=== PATIENT | female | born 1960 | race African-American/Black ===

== ENCOUNTER 2017-12-28 11:22 | Emergency (ER) | payer BC, MEDICAID ==
[~2017-12-28] VITALS: Ht 170.2 cm; Wt 72.6 kg
[2017-12-28] MEDS ORDERED: XANAX0.5 MG ORAL (11:34)
[2017-12-28] MEDS ORDERED: Ketorolac 30mg Inj IV ONE (12:00)
[2017-12-28 12:09] VITALS: BP 133/99
[2017-12-28] MEDS ORDERED: ACETAMINOPHEN-1 EAC1 ORAL (12:14)
--- NOTE | 2017-12-28 12:14 | Emergency Room Report ---
History of Present Illness General Chief Complaint: Abdominal Pain Source: Patient Present Illness HPI This patient c/o < one day right sided, RUQ and epigastric pain pain, sharp, burning. She has had pancreatitis in the past, this feels dissimilar. She says she has been told in the past that she has had an "inflamed gallbladder" by US. Denies etoh. Took one ibuprofen this am. Ate breakfast this am. Ate normal breakfast this am, no vomiting, no fever, no dysuria. No meds. Allergies: Coded Allergies: No Known Allergies (Unverified , 12/28/17) Patient History Last Menstrual Period: 2 years ago Nursing Documentation-[facility] Past Medical History: No History, Except For Hx Cardiac Problems: No Hx Hypertension: No Hx Pacemaker: No Hx Asthma: No Hx COPD: No Hx Diabetes: No Hx Gastrointestinal Problems: No Hx Dialysis: No History Of Psychiatric Problem: Yes - Anxiety Hx Neurological Problems: No Hx Cerebrovascular Accident: No Hx Seizures: No Review of Systems Constitutional: Reports: no symptoms Eye: Reports: no symptoms ENT: Reports: no symptoms Respiratory: Reports: no symptoms Cardiovascular: Reports: no symptoms Gastrointestinal: Reports: see HPI, abdominal pain Genitourinary: Reports: no symptoms Musculoskeletal: Reports: no symptoms Skin: Reports: no symptoms Psychiatric: Reports: no symptoms Neurological: Reports: no symptoms Endocrine: Reports: no symptoms Hematologic/Lymphatic: Reports: no symptoms Allergic: Reports: no symptoms Physical Exam Vital Signs Date Time Temp Pulse Resp B/P (MAP) Pulse Ox O2 Delivery O2 Flow Rate FiO2 12/28/17 11:25 98.1 85 16 133/99 99 Room Air 98.1 Sp02 EP Interpretation: reviewed, normal General Appearance: normal inspection, well appearing, no apparent distress, alert, GCS 15, non-toxic Head: normocephalic, atraumatic Eyes: bilateral eye normal inspection, bilateral eye PERRL, bilateral eye EOMI ENT: normal ENT inspection, hearing grossly normal, normal pharynx, no angioedema, normal voice, moist mucus membranes Neck: normal inspection, full range of motion, supple, no meningismus, no bony tend Respiratory: normal inspection, lungs clear, normal breath sounds, no rhonchi, no respiratory distress, no retraction, no accessory muscle use, no wheezing Cardiovascular #1: normal inspection, regular rate, rhythm, no edema Gastrointestinal: normal inspection, normal bowel sounds, soft, no mass, non- distended, other - +RUQ tender negative Hall's no surgical signs Musculoskeletal: gait/station normal, normal range of motion Neurologic: normal inspection, alert, oriented x3, responsive, motor strength/ tone normal Psychiatric: normal inspection, judgement/insight normal, memory normal Suicide Risk Assessment: Suicidal Ideation: No Had intent to initiate attempt: No Pt's plan for suicide attempt: No Has means to complete attempt: No Skin: normal inspection, normal color, no rash, warm/dry Medical Decision Making Diagnostic Impression: Primary Impression: Gastritis ER Course US per tech could not exclude stones due to gb contracted. however CBD normal. Not thickened wall. Last Vital Signs Date Time Temp Pulse Resp B/P (MAP) Pulse Ox O2 Delivery O2 Flow Rate FiO2 12/28/17 11:25 98.1 85 16 133/99 99 Room Air 98.1 Disposition: HOME, SELF-CARE Condition: Stable Scripts Acetaminophen With Codeine (T#3) (TYLENOL #3 TAB*) Y Tab 1 TAB ORAL Q8H PRN for For Pain, #9 TAB Prov: Des Mustafa M.D. 12/28/17 Referrals: [facility] (PCP) Patient Instructions: Biliary Colic, Gastritis, Adult Des Mustafa M.D. Dec 28, 2017 12:14
[2017-12-28 12:16] LABS: APPEARANCE,URINE CLEAR; BILIRUBIN, URINE NEGATIVE (NEGATIVE); COLOR,URINE PALE YELLOW; GLUCOSE, URINE (UA) NEGATIVE (NEGATIVE); KETONES,URINE NEGATIVE (NEGATIVE); LEUKOCYTE ESTERASE ,URINE 2+ (NEGATIVE); NITRITE,URINE NEGATIVE (NEGATIVE); PH,URINE 6 (4.5-8.0); PROTEIN,URINE NEGATIVE (NEGATIVE); UROBILINOGEN,URINE NORMAL MG/DL (0.0-1.0)
[2017-12-28 12:42] LABS: BASOPHILS % (AUTO) 1.3 % (0.0-2.0); HEMATOCRIT 41.9 % (37.0-47.0); HEMOGLOBIN 13.3 G/DL (12.0-16.0); LYMPHOCYTES % (AUTO) 40.2 % (20.0-45.0); MEAN CORPUSCULAR VOLUME 85 FL (80-99); MONOCYTES % (AUTO) 8.1 % (1.0-10.0); NEUTROPHILS % (AUTO) 49.4 % (45.0-75.0); PLATELET COUNT 222 K/UL (150-450); RED BLOOD COUNT 4.91 M/UL (4.20-5.40); RED CELL DISTRIBUTION WIDTH 12.3 % (11.6-14.8)
[2017-12-28 12:58] LABS: ANION GAP 9 mmol/L (5-15); BLOOD UREA NITROGEN 11 mg/dL (7-18); CALCIUM 9.1 MG/DL (8.5-10.1); CARBON DIOXIDE 25 MMOL/L (21-32); CHLORIDE 106 MMOL/L (98-107); CREATININE 0.9 MG/DL (0.55-1.30); SODIUM 140 MMOL/L (136-145)
[2017-12-28 13:00] LABS: ALANINE AMINOTRANSFERASE 14 U/L (12-78); ALBUMIN 3.8 G/DL (3.4-5.0); ALBUMIN/GLOBULIN RATIO 0.9 (1.0-2.7); ALKALINE PHOSPHATASE 106 U/L (46-116); ASPARTATE AMINO TRANSFERASE 32 U/L (15-37); BILIRUBIN,TOTAL 0.5 MG/DL (0.2-1.0)
[2017-12-28 13:33] VITALS: BP 133/99
--- NOTE | 2017-12-28 13:47 | Diagnostic Imaging Report ---
Indication: Abdominal pain Technique: US ABD Complete Comparison: None Findings: Imaged portions of the pancreatic head are grossly unremarkable. Liver appears normal in size and contour. No focal hepatic mass lesion is appreciated sonographically. The main portal vein is patent with normal direction of flow. Gallbladder is contracted, limiting its evaluation. The presence of gallstones or sludge cannot reliably be determined. There is no abnormal gallbladder wall thickening or pericholecystic fluid. Sonographic Hall sign reported as negative. No appreciable intrahepatic biliary ductal dilatation. Common bile duct is normal in caliber measuring 4.5 mm. Kidneys demonstrate normal echogenicity. There is no hydronephrosis or sonographically appreciable stone bilaterally. Spleen is normal in size. There is no ascites. Imaged portions of the inferior vena cava and abdominal aorta are normal in caliber. IMPRESSION: Contracted gallbladder, likely related to nonfasting state. No definite stones or sludge identified however evaluation limited due to gallbladder contraction. No sonographic evidence to suggest acute cholecystitis. Sonographic Hall sign reported as negative.
== END 2017-12-28 13:34 | disposition home or self-care (01) ==
LOC: EMR 11:53
DX: K29.70 Gastritis, unspecified, without bleeding (principal)
CPT/HCPCS: 01922; 36415; 76700; 80053; 81001; 83690; 85025; 96361; 96374; 99284; J1885

== ENCOUNTER 2018-06-20 21:07 | Emergency (ER) | payer BC, OTHER ==
[~2018-06-20] VITALS: Ht 177.8 cm; Wt 63.5 kg
[~2018-06-20 21:07] MED LIST: ACETAMINOPHEN-1 EAC1 ORAL; XANAX0.5 MG ORAL
--- NOTE | 2018-06-20 21:45 | NUR ---
ED Nurse Note: RECIEVED PT FROM HOME AWAKE, ALERT AND ORIENTED X 4, PT WITH C/O CHRONIC ABD PAIN, STATING SHE HAS HX OF PANCREATITIS AND WORK INJURY TO BACK, PT IS AMBULATING, C/O PAIN AT 9/10 WITH NAUSEA, NO EMESIS, NO CP, NO SOB OR FEVERS OR DIARRHEA, PT GOWNED AND ASSISTED TO MONITORING, WILL RESUME CARE ODERED WITH CLOSE, CONTINUOUS MONITORING.
[2018-06-20] MEDS ORDERED: Morphine Sulfate 4mg/ml Inj (IV/IM USE ONLY) IVP ONE (22:00)
[2018-06-20 22:20] LABS: BASOPHILS % (AUTO) 1.2 % (0.0-2.0); EOSINOPHILS % (AUTO) 1.5 % (0.0-3.0); HEMOGLOBIN 12.9 G/DL (12.0-16.0); LYMPHOCYTES % (AUTO) 46.6 % (20.0-45.0); MEAN CORPUSCULAR VOLUME 86 FL (80-99); NEUTROPHILS % (AUTO) 41.7 % (45.0-75.0); PLATELET COUNT 232 K/UL (150-450); RED BLOOD COUNT 4.77 M/UL (4.20-5.40); RED CELL DISTRIBUTION WIDTH 12.3 % (11.6-14.8); WHITE BLOOD COUNT 7.2 K/UL (4.8-10.8)
[2018-06-20 22:30] VITALS: BP 154/92
[2018-06-20 22:33] LABS: ANION GAP 10 mmol/L (5-15); BLOOD UREA NITROGEN 12 mg/dL (7-18); CALCIUM 9.3 MG/DL (8.5-10.1); CARBON DIOXIDE 26 MMOL/L (21-32); CHLORIDE 105 MMOL/L (98-107); CREATININE 1.1 MG/DL (0.55-1.30); POTASSIUM 3.9 MMOL/L (3.5-5.1); SODIUM 141 MMOL/L (136-145)
--- NOTE | 2018-06-20 22:37 | Emergency Room Report ---
History of Present Illness General Chief Complaint: Abdominal Pain Source: Patient Present Illness HPI Patient presents with complaints of upper abdominal pain Reports that she has been dealing with chronic pancreatitis Does not feel that she's getting a definitive evaluation and follow-up Denies any vomiting or diarrhea Complains of pain bilateral upper abdomen 5 out of 10 denies any fevers or chills denies any vomiting or diarrhea Denies any neck pain or photophobia Patient reports that she had a fall recently felt that this might have exacerbated her discomfort Allergies: Coded Allergies: No Known Allergies (Unverified , 12/28/17) Patient History Past Medical History: see triage record Pertinent Family History: none Now: No Reviewed Nursing Documentation: PMH: Agreed; PSxH: Agreed Nursing Documentation-PMH Hx Cardiac Problems: No Hx Hypertension: No Hx Pacemaker: No Hx Asthma: No Hx COPD: No Hx Diabetes: No Hx Gastrointestinal Problems: No Hx Dialysis: No Hx Neurological Problems: No Hx Cerebrovascular Accident: No Hx Seizures: No Review of Systems All Other Systems: negative except mentioned in HPI Physical Exam Vital Signs Date Time Temp Pulse Resp B/P (MAP) Pulse Ox O2 Delivery O2 Flow Rate FiO2 06/20/18 21:23 97.7 73 18 140/97 98 Room Air Sp02 EP Interpretation: reviewed, normal General Appearance: well appearing, no apparent distress Head: normocephalic, atraumatic Eyes: bilateral eye PERRL, bilateral eye EOMI ENT: hearing grossly normal, normal pharynx, TMs + canals normal, uvula midline Neck: full range of motion, supple, no meningismus, no bony tend Respiratory: lungs clear, normal breath sounds, no rhonchi, no respiratory distress, no retraction, no accessory muscle use Cardiovascular #1: normal peripheral pulses, regular rate, rhythm, no edema, no gallop, no JVD, no murmur Gastrointestinal: normal bowel sounds, non tender, soft, no mass, no organomegaly, non-distended, no guarding, no hernia, no pulsatile mass, no rebound Genitourinary: no CVA tenderness Musculoskeletal: normal inspection Neurologic: oriented x3, responsive, grinder set up operator gear tool III-XII nml as tested, motor strength/ tone normal, sensory intact Psychiatric: mood/affect normal Skin: normal color, no rash, warm/dry, palpation normal Lymphatic: normal inspection, no adenopathy Medical Decision Making Diagnostic Impression: Primary Impression: Abdominal pain ER Course With the history exam and presentation, multiple differentials considered, including but not limited to appendicitis, gastritis, cholecystitis, diverticulitis Patient's blood work at this time is appropriate and normal please note that the patient reported she had some incident and apprehension regarding IV access therefore requested IM injection On repeat eval patient has done better and requires close outpatient follow-up Labs Test 06/20/18 22:00 White Blood Count 7.2 K/UL (4.8-10.8) Red Blood Count 4.77 M/UL (4.20-5.40) Hemoglobin 12.9 G/DL (12.0-16.0) Hematocrit 41.0 % (37.0-47.0) Mean Corpuscular Volume 86 FL (80-99) Mean Corpuscular Hemoglobin 27.1 PG (27.0-31.0) Mean Corpuscular Hemoglobin Concent 31.5 G/DL (32.0-36.0) Red Cell Distribution Width 12.3 % (11.6-14.8) Platelet Count 232 K/UL (150-450) Mean Platelet Volume 6.8 FL (6.5-10.1) Neutrophils (%) (Auto) 41.7 % (45.0-75.0) Lymphocytes (%) (Auto) 46.6 % (20.0-45.0) Monocytes (%) (Auto) 9.0 % (1.0-10.0) Eosinophils (%) (Auto) 1.5 % (0.0-3.0) Basophils (%) (Auto) 1.2 % (0.0-2.0) Sodium Level 141 MMOL/L (136-145) Potassium Level 3.9 MMOL/L (3.5-5.1) Chloride Level 105 MMOL/L (98-107) Carbon Dioxide Level 26 MMOL/L (21-32) Anion Gap 10 mmol/L (5-15) Blood Urea Nitrogen 12 mg/dL (7-18) Creatinine 1.1 MG/DL (0.55-1.30) Estimat Glomerular Filtration Rate > 60 mL/min (>60) Glucose Level 109 MG/DL (74-106) Calcium Level 9.3 MG/DL (8.5-10.1) Total Bilirubin 0.5 MG/DL (0.2-1.0) Aspartate Amino Transf (AST/SGOT) 27 U/L (15-37) Alanine Aminotransferase (ALT/SGPT) 20 U/L (12-78) Alkaline Phosphatase 116 U/L (46-116) Total Protein 7.6 G/DL (6.4-8.2) Albumin 3.6 G/DL (3.4-5.0) Globulin 4.0 g/dL Albumin/Globulin Ratio 0.9 (1.0-2.7) Lipase 232 U/L (73-393) Last Vital Signs Date Time Temp Pulse Resp B/P (MAP) Pulse Ox O2 Delivery O2 Flow Rate FiO2 06/20/18 21:23 97.7 73 18 140/97 98 Room Air Status: improved Disposition: HOME, SELF-CARE Condition: Improved Additional Instructions: Patient is provided with the discharge instructions notified to follow up with primary doctor in the next 2-3 days otherwise return to the er with any worsening symptoms. Please note that this report is being documented using [employer] technology. This can lead to erroneous entry secondary to incorrect interpretation by the dictating instrument. Gabriel Connelly DO Jun 20, 2018 22:37
[2018-06-20 22:38] LABS: ALANINE AMINOTRANSFERASE 20 U/L (12-78); ALBUMIN 3.6 G/DL (3.4-5.0); ALBUMIN/GLOBULIN RATIO 0.9 (1.0-2.7); ALKALINE PHOSPHATASE 116 U/L (46-116); ASPARTATE AMINO TRANSFERASE 27 U/L (15-37); BILIRUBIN,TOTAL 0.5 MG/DL (0.2-1.0)
--- NOTE | 2018-06-20 22:45 | NUR ---
ED Nurse Note: PT REFUSED TO HOAVE IV LINE PLACED, STATES HAD TRAGEDY CHILD AND IT MAKES HER PANIC, MANY ATTEMPTS MADE TO CONSOLE AND TRY TO OBTAIN BUT PT CONTINUES TO REFUSE, PT LABS DRAWN BY BUTTERFLY ONLY PER PT REQUEST AND MD STATES OK TO GIVE MEDICATION IM FOR PT PAIN, PT MEDICATED WITH MORPHINE IM, REFUSED ZOFRAN ALSO, PT IS ON CARDIAC MONITORING, IS AWARE, WILL CONTINUE TO CLOSELY MONITOR, PT CONVERSING AND LAUGHING WITH SPOUSE AT BEDSIDE.
[2018-06-21] VITALS: BP 155/89
--- NOTE | 2018-06-21 | NUR ---
ED Nurse Note: Pt being d/c to home, pt in bed crying stating she thinks she needs an ultrasound, md spoke with pt and no new orders given, pt is angry and crying, pt remains withpain at 7/10, pain meds offered, pt refused, pt given f/u info, after care instructions and off work note, pt is ambulatory, v/s stable, armband removed, with spouse to drive, no cp, no sob, nad noted during d/c to home.
== END 2018-06-21 00:19 | disposition home or self-care (01) ==
LOC: EMR 21:24
DX: R10.10 Upper abdominal pain, unspecified (principal)
CPT/HCPCS: 36415; 80053; 83690; 85025; 96374; 99284; J2270

== ENCOUNTER 2019-10-10 13:16 | Emergency (ER) | payer BC, OTHER ==
[~2019-10-10] VITALS: Ht 170.2 cm; Wt 72.6 kg
--- NOTE | 2019-10-10 13:55 | Emergency Room Report ---
History of Present Illness General Chief Complaint: Lower Extremity Injury Source: Patient Present Illness HPI 59-year-old female presents to the emergency department complaining of 7 out of 10 in severity right foot pain in addition to bilateral rodriguez pain status post mechanical trip and fall yesterday. Patient reports she took 600 mg ibuprofen prior to arrival and had minimal relief only temporarily. Patient denies bruising. She reports some mild swelling. Patient denies hitting her head or having a loss of consciousness. She denies midline neck or back pain. She denies paresthesias or inability to ambulate. Allergies: Coded Allergies: No Known Allergies (Unverified , 12/28/17) COVID-19 Screening Contact w/high risk pt: No Recent Travel to affected area: No Experienced COVID-19 symptoms?: No COVID-19 Testing performed COMMISSIONS ANALYST: No Patient History Past Medical History: see triage record Past Surgical History: none Pertinent Family History: none Now: No Reviewed Nursing Documentation: PMH: Agreed; PSxH: Agreed Nursing Documentation-PMH Hx Hypertension: No Hx Pacemaker: No Hx Asthma: No Hx COPD: No Hx Diabetes: No Hx Dialysis: No Hx Neurological Problems: No Hx Cerebrovascular Accident: No Hx Seizures: No Review of Systems All Other Systems: negative except mentioned in HPI Physical Exam Vital Signs Date Time Temp Pulse Resp B/P (MAP) Pulse Ox O2 Delivery O2 Flow Rate FiO2 10/10/19 13:20 98.1 75 19 133/85 (101) 98 Room Air Sp02 EP Interpretation: reviewed, normal General Appearance: no apparent distress, alert, GCS 15, non-toxic Head: normocephalic, atraumatic Eyes: bilateral eye normal inspection, bilateral eye PERRL ENT: hearing grossly normal, normal voice Neck: full range of motion Respiratory: lungs clear, normal breath sounds, speaking full sentences Cardiovascular #1: regular rate, rhythm, normal capillary refill Cardiovascular #2: 2+ dorsalis pedis (R) Musculoskeletal: normal range of motion, gait/station normal, tender - Dorsal of the right foot, mild TTP to the anterior shins bilaterally. No appreciable swelling or bruises. Neurologic: alert, motor strength/tone normal, oriented x3, sensory intact, responsive, speech normal Psychiatric: judgement/insight normal Skin: abrasion - small superficial linear abrasion to the anterior right and left rodriguez. not bleeding. Medical Decision Making PA Attestation Dr. Stock Is my supervising Physician whom patient management has been discussed with. Diagnostic Impression: Primary Impression: Right foot sprain Qualified Codes: S93.601A - Unspecified sprain of right foot, initial encounter Additional Impressions: Contusion of lower leg, left Qualified Codes: S80.12XA - Contusion of left lower leg, initial encounter Contusion of lower leg, right Qualified Codes: S80.11XA - Contusion of right lower leg, initial encounter Abrasion ER Course 59-year-old female presents to the emergency department complaining of 7 out of 10 in severity right foot pain in addition to bilateral rodriguez pain status post mechanical trip and fall yesterday. Patient reports she took 600 mg ibuprofen prior to arrival and had minimal relief only temporarily. Patient denies bruising. She reports abrasions to shins. She reports anterior tenderness to the left rodriguez as well. She reports some mild swelling. Patient denies hitting her head or having a loss of consciousness. She denies midline neck or back pain. She denies paresthesias or inability to ambulate. Ddx considered but are not limited to Fracture, dislocation, contusion, Sprain/ Strain/Spasm, abrasions, Cellulitis, DVT just to name a few. Vital signs: are WNL, pt. is afebrile H&PE are most consistent with musculoskeletal injury will perform imaging to r/ o fractures/dislocations. ORDERS: - X-ray Right FOOT 3 views - negative for fx, Dislocation, or significant soft tissue injury, per preliminary read in ED, and signed by MELANIA Gao , my supervising physician has reviewed, and agrees with my interpretation. -X-ray Left TIb/Fib: WNL ED INTERVENTIONS: - T3 PO -Taqueria wrap applied by dental service technician. Pt. remains neurovascularly intact. -Patient is provided with crutches and instructed on their use DISCHARGE: At this time pt. is stable for d/c to home. Will provide printed patient care instructions, and any necessary prescriptions. Care plan and follow up instructions have been discussed with the patient prior to discharge. Other X-Ray Diagnostic Results Other X-Ray Diagnostic Results #1: X-Ray ordered: Right Foot # of Views/Limited Vs Complete: 3 View Indication: Pain EP Interpretation: Yes MELANIA Xray: Interpretation reviewed, by supervising MD, and agrees with findings. Interpretation: no dislocation, no soft tissue swelling, no fractures Impression: No acute disease Electronically Signed by: Yvette Gao PA-C Other X-Ray Diagnostic Results #2: X-Ray ordered: Xray left tib/fib # of Views/Limited Vs Complete: 2 View Indication: Pain EP Interpretation: Yes PA Xray: Interpretation reviewed, by supervising MD, and agrees with findings. Interpretation: no dislocation, no soft tissue swelling, no fractures Impression: No acute disease Electronically Signed by: Yvette Gao PA-C Last Vital Signs Date Time Temp Pulse Resp B/P (MAP) Pulse Ox O2 Delivery O2 Flow Rate FiO2 10/10/19 13:20 98.1 75 19 133/85 (101) 98 Room Air Disposition: HOME, SELF-CARE Condition: Stable Scripts Acetaminophen With Codeine (T#3) (TYLENOL #3 TAB*) Y Tab 1 TAB ORAL Q6H PRN for For Pain, #5 TAB Prov: Yvette Gao 10/10/19 Bacitracin (Bacitracin) 28.4 Gm Oint...g. 1 APPLIC TOPIC THREE TIMES A DAY, #28.3 GM Prov: Yvette Gao 10/10/19 Naproxen* (NAPROXEN*) 500 Mg Tablet.dr 500 MG ORAL TWICE A DAY for 7 Days, #14 TAB Prov: Yvette Gao 10/10/19 Referrals: [facility],REFERR[facility] (PCP) Patient Instructions: Foot Sprain Additional Instructions: Take medications as directed. Do not drink alcohol, drive, or operate heavy machinery while taking Tylenol # 3 as this may cause drowsiness. Follow up with an [facility] in 3-5 days, even if your symptoms have resolved. If symptoms persist MRI may be required at the discretion of your PCP or Ortho Specialist. --Please review list of primary care clinics, if you do not already have a primary care provider who can give you an Orthopedic Referral. Return sooner to ED if new symptoms occur, or current symptoms become worse. - Please note that this Emergency Department Report was dictated using [employer] technology software, occasionally this can lead to erroneous entry secondary to interpretation by the dictation equipment. Yvette Gao Oct 10, 2019 13:55
[2019-10-10] MEDS ORDERED: Tylenol #3 tab (300mg/30mg) ORAL ONE (14:00)
[2019-10-10] MEDS ORDERED: NAPROXEN500 M1 ORAL ×3 (14:31→15:21)
[2019-10-10] MEDS ORDERED: ACETAMINOPHEN-1 EAC1 ORAL ×3 (14:31→15:23)
[2019-10-10] MEDS ORDERED: BACITRACIN15 GM TOPIC ×3 (14:32→15:21)
[2019-10-10] MEDS ORDERED: NORCO 5-325 TA1 EAC1 ORAL (15:21)
[2019-10-10 15:26] VITALS: BP 136/74
--- NOTE | 2019-10-10 16:16 | Diagnostic Imaging Report ---
Indication: Reason For Exam: PAIN Technique: 2 views of the left tibia and fibula Comparison: none Findings: No acute fractures. No dislocations. No radiopaque foreign body Impression: Negative
--- NOTE | 2019-10-10 16:22 | Diagnostic Imaging Report ---
Indication: Right foot pain Technique: 3 views right foot Comparison: none Findings: There is degenerative narrowing of the first metatarsophalangeal joint. No acute fractures. No dislocations. There is a small plantar spur Impression: Degenerative changes No acute bony trauma
== END 2019-10-10 15:26 | disposition home or self-care (01) ==
LOC: EMR 13:32
DX: S93.601A Unspecified sprain of right foot, initial encounter (principal); S80.12XA Contusion of left lower leg, initial encounter; S80.11XA Contusion of right lower leg, initial encounter; W01.0XXA Fall on same level from slipping, tripping and stumbling without subsequent striking against object, initial encounter; Y93.9 Activity, unspecified; Y92.9 Unspecified place or not applicable
CPT/HCPCS: 73590; 73630; Z7502; 99284